=== PATIENT | female | born 1995 | race Caucasian/White ===

== ENCOUNTER 2017-05-24 05:52 | Emergency (ER) | payer BC, OTHER ==
[~2017-05-24] VITALS: Ht 157.5 cm; Wt 43.1 kg
[~2017-05-24 05:52] MED LIST: ACEASPCAF PO; ACEBUTCAFT PO; ACET325 PO; ACET325UDC; ACET500; ALBU4 PO; ALBU90I INH; ALBU90OI INH; ALBU90OI6 INH; ALBU90OI61 INH; AMOCLA400S PO; AMOCLA875 PO; AMOX250 PO; AMOX500 PO; AMOX50SU PO; AZIT200SU PO; AZIT250 PO; Ativan1 MG SL; BIRTH CONTROL; BIRTH CONTROL PILLS PO; Bactrim Ds Tab1 EACH PO; CEPH250A PO; CEPH500 PO; CODACE30 PO; CODACEE120 PO; CODGUAEL PO; CYCL10; CYCL10 PO; Colace100 MG PO; Cyclobenzaprine5 MG PO; DEXGUASY PO; ERYT.5TO OS; Esgic Tablet1 EACH PO; Flagyl250 MG PO; HYDACE5 PO; HYDGUAL120 PO; IBUP100S; IBUP200; IBUP200 PO; IBUP600 PO; KETO10 PO; LIDO5TP; LOPE2C PO; MOTRIN; Motrin600 MG PO; NAPR375 PO; Norco 5-325 Ta1 EACH PO; ONDA4 PO; ONDA4ODT MM; ONDA8ODT MM; OTC COLD MEDS; OXYACE5T PO; PENVK250 PO; PRED20 PO; PRENATAL VITAM1 EAC1 PO; PROM12.5S RC; PROM25 PO; Percocet 5-3251 EACH PO; Pyridium100 MG; RXALBOI INH; RXAMOX500 PO; RXCODACESY PO; RXCODACET PO; RXHYDACE PO; RXHYDGUAS PO; RXONDA4ODT MM; RXOXYACE PO; RXPENVK250 PO; RXPROCODSY PO; Roxicodone5 MG PO; TRAM50 PO; TRIAMINIC; TYLENOL AND MOTRIN; TYLENOL COLD; TYLENOL/MOTRIN PRN; Ultram50 MG PO; Vibramycin100 MG PO; YAZ; ZINC15G; Zofran Odt4 MG SL; [UNRECOGNIZED DRUG - OTHER]; [UNRECOGNIZED DRUG - REMARK]
[2017-05-24] MEDS ORDERED: Ultram50 MG PO (06:36)
[2017-05-24] MEDS ORDERED: IBUP800 PO (06:36)
[2017-05-24] MEDS ORDERED: Veetids 500500 MG PO (06:36)
[2017-09-28] MEDS ORDERED: Cleocin HCl300 MG PO (18:30)
[2017-09-30] MEDS ORDERED: Bactrim Ds Tab1 EACH PO (16:32)
[2017-09-30] MEDS ORDERED: Keflex500 MG PO (16:32)
== END 2017-05-24 06:47 | disposition home or self-care (01) ==
LOC: ER 05:52
DX: K08.89 Other specified disorders of teeth and supporting structures (principal); J45.909 Unspecified asthma, uncomplicated; F17.200 Nicotine dependence, unspecified, uncomplicated; Z88.5 Allergy status to narcotic agent; Z88.8 Allergy status to other drugs, medicaments and biological substances
CPT/HCPCS: 99283

== ENCOUNTER 2017-06-30 13:59 | Emergency (ER) | payer BC, OTHER ==
[~2017-06-30] VITALS: Ht 157.5 cm; Wt 45.4 kg
[~2017-06-30 13:59] MED LIST changes: +IBUP800 PO; +Veetids 500500 MG PO
[2017-06-30] MEDS ORDERED: IBUP800 PO (14:28)
[2017-06-30] MEDS ORDERED: Amoxicillin500 MG PO (14:34)
== END 2017-06-30 14:46 | disposition home or self-care (01) ==
LOC: ER 13:59
DX: K02.9 Dental caries, unspecified (principal); Z88.5 Allergy status to narcotic agent; Z88.8 Allergy status to other drugs, medicaments and biological substances; Z79.899 Other long term (current) drug therapy; Z79.2 Long term (current) use of antibiotics; J45.909 Unspecified asthma, uncomplicated; G43.909 Migraine, unspecified, not intractable, without status migrainosus; F17.210 Nicotine dependence, cigarettes, uncomplicated
CPT/HCPCS: 64400; 99283

== ENCOUNTER 2017-07-07 19:55 | Emergency (ER) | payer BC, OTHER ==
[~2017-07-07] VITALS: Ht 157.5 cm; Wt 45.4 kg
[~2017-07-07 19:55] MED LIST changes: +Amoxicillin500 MG PO
[2017-07-07 20:47] LABS: BASOPHILS ABSOLUTE AUTO 0.05 K/mm3 (0.00-0.23); BASOPHILS PERCENT AUTO 1 % (0-2); EOSINOPHILS ABSOLUTE AUTO 0.06 K/mm3 (0.00-0.68); EOSINOPHILS PERCENT AUTO 1 % (0-6); Hematocrit 40.4 % (33.0-51.0); Hemoglobin 13.6 g/dL (11.5-16.0); IMMATURE GRAN ABSOLUTE AUTO 0.03 K/mm3 (0.00-0.10); IMMATURE GRAN PERCENT AUTO 0 % (0-1); LYMPHOCYTES ABSOLUTE AUTO 2.58 K/mm3 (0.84-5.20); LYMPHOCYTES PERCENT AUTO 25 % (21-46); MONOCYTES ABSOLUTE AUTO 0.55 K/mm3 (0.16-1.47); MONOCYTES PERCENT AUTO 5 % (4-13); Mean Corpuscular HGB 30.2 pg (26.0-34.0); Mean Corpuscular HGB Conc 33.7 g/dL (31.5-36.5); Mean Corpuscular Volume 90 fL (80-100); Mean Platelet Volume 9.3 fL (9.1-12.4); NEUTROPHILS ABSOLUTE AUTO 6.98 K/mm3 (1.96-9.15); NEUTROPHILS PERCENT AUTO 68 % (41-73); Platelet Count 347 K/mm3 (150-400); RDW Coefficient Variation 11.9 % (11.7-14.2); RDW Standard Deviation 39.4 fL (35.1-46.3); White Blood Cell Count 10.25 K/mm3 (4.00-11.30)
[2017-07-07 21:04] LABS: Alanine Aminotransfer (ALT/SGP 17 U/L (12-78); Albumin, Blood 3.9 g/dL (3.4-5.0); Alk Phos 88 U/L (50-136); Anion Gap 6 mmol/L (6-16); Aspartate Aminotrans (AST/SGOT 14 U/L (12-37); Bilirubin, Total 0.3 mg/dL (0.1-1.0); Blood Urea Nitrogen 15 mg/dL (8-24); Bun/Creatinine Ratio 15.7 (12.0-20.0); CO2, Blood 29 mmol/L (21-32); Calcium, Blood 8.9 mg/dL (8.5-10.1); Chloride, Blood 105 mmol/L (98-108); Creatinine, Blood 0.96 mg/dL (0.40-1.00); Globulin, Blood 3.9 g/dL (2.2-4.0); Glomerular Filtration Rate >60 (60-); Glucose, Blood 84 mg/dL (70-99); Potassium, Blood 3.4 mmol/L (3.5-5.5); Sodium, Blood 140 mmol/L (136-145); Total Protein, Blood 7.8 g/dL (6.4-8.2)
[2017-07-08] MEDS ORDERED: CYCL10 PO (01:43)
== END 2017-07-08 02:52 | disposition home or self-care (01) ==
LOC: ER 19:55
PROVIDERS: Emergency Medicine
DX: M54.2 Cervicalgia (principal); Z88.5 Allergy status to narcotic agent; Z88.8 Allergy status to other drugs, medicaments and biological substances; Z79.899 Other long term (current) drug therapy; Z79.2 Long term (current) use of antibiotics; J45.909 Unspecified asthma, uncomplicated; F17.210 Nicotine dependence, cigarettes, uncomplicated
CPT/HCPCS: 36415; 70450; 70496; 70498; 80053; 84703; 85025; 96361; 96374; 96375; 99284; J1100; J1200; J1885; J2765; J3010; J7030; Q9967

== ENCOUNTER 2017-11-27 11:28 | Observation (INO) | payer OTHER ==
[~2017-11-27] VITALS: Ht 157.5 cm; Wt 45.4 kg
[~2017-11-27 11:28] MED LIST changes: +Cleocin HCl300 MG PO; +Keflex500 MG PO
[2017-11-27 12:26] LABS: BASOPHILS ABSOLUTE AUTO 0.06 K/mm3 (0.00-0.23); BASOPHILS PERCENT AUTO 0 % (0-2); EOSINOPHILS ABSOLUTE AUTO 0.16 K/mm3 (0.00-0.68); EOSINOPHILS PERCENT AUTO 1 % (0-6); Hematocrit 45.2 % (33.0-51.0); Hemoglobin 14.6 g/dL (11.5-16.0); IMMATURE GRAN ABSOLUTE AUTO 0.04 K/mm3 (0.00-0.10); IMMATURE GRAN PERCENT AUTO 0 % (0-1); LYMPHOCYTES ABSOLUTE AUTO 1.72 K/mm3 (0.84-5.20); LYMPHOCYTES PERCENT AUTO 12 % (21-46); MONOCYTES ABSOLUTE AUTO 0.61 K/mm3 (0.16-1.47); MONOCYTES PERCENT AUTO 4 % (4-13); Mean Corpuscular HGB 29.5 pg (26.0-34.0); Mean Corpuscular HGB Conc 32.3 g/dL (31.5-36.5); Mean Corpuscular Volume 91 fL (80-100); Mean Platelet Volume 9.3 fL (9.1-12.4); NEUTROPHILS ABSOLUTE AUTO 11.88 K/mm3 (1.96-9.15); NEUTROPHILS PERCENT AUTO 82 % (41-73); Platelet Count 281 K/mm3 (150-400); RDW Coefficient Variation 12.7 % (11.7-14.2); RDW Standard Deviation 42.9 fL (35.1-46.3); Red Blood Cell Count 4.95 M/mm3 (3.80-5.20); White Blood Cell Count 14.47 K/mm3 (4.00-11.30)
[2017-11-27 12:41] LABS: Alanine Aminotransfer (ALT/SGP 22 U/L (12-78); Albumin, Blood 3.6 g/dL (3.4-5.0); Alk Phos 100 U/L (50-136); Anion Gap 5 mmol/L (6-16); Aspartate Aminotrans (AST/SGOT 13 U/L (12-37); Bilirubin, Total 0.3 mg/dL (0.1-1.0); Blood Urea Nitrogen 8 mg/dL (8-24); Bun/Creatinine Ratio 10.6 (12.0-20.0); CO2, Blood 32 mmol/L (21-32); Calcium, Blood 9.1 mg/dL (8.5-10.1); Chloride, Blood 102 mmol/L (98-108); Creatinine, Blood 0.76 mg/dL (0.40-1.00); Globulin, Blood 3.6 g/dL (2.2-4.0); Glomerular Filtration Rate >60 (60-); Glucose, Blood 90 mg/dL (70-99); Potassium, Blood 4.1 mmol/L (3.5-5.5); Sodium, Blood 139 mmol/L (136-145); Total Protein, Blood 7.2 g/dL (6.4-8.2)
[2017-11-27 13:51] LABS: Source, Urine Clean Catch
[2017-11-27 13:55] LABS: Bilirubin, Urine Neg (Neg); Blood, Urine Neg (Neg); Glucose Qualitative, Urine Neg (Neg); Ketones, Urine Neg (Neg); Leukocyte Esterase, Urine 2+ (Neg); Nitrite, Urine Neg (Neg); Protein, Urine Neg (Neg); Urobilinogen, Urine NORM (Normal)
[2017-11-27 14:18] LABS: Appearance, Urine Clear (Clear); Bacteria Rare /hpf; Color, Urine Yellow (P-Yellow); Red Blood Cells, Urine Not Seen /hpf (0-2); Squamous Epithelial Cells Few /hpf (Few); White Blood Cells, Urine 0-2 /hpf (0-5)
[2017-11-27 17:36] LABS: Candida species (DNA Probe) Negative (NEGATIVE); G. vaginalis (DNA Probe) Positive (NEGATIVE); T. vaginalis (DNA Probe) Negative (NEGATIVE)
[2017-11-28 04:36] LABS: BASOPHILS ABSOLUTE AUTO 0.04 K/mm3 (0.00-0.23); BASOPHILS PERCENT AUTO 0 % (0-2); EOSINOPHILS PERCENT AUTO 1 % (0-6); Hematocrit 41.7 % (33.0-51.0); Hemoglobin 13.7 g/dL (11.5-16.0); IMMATURE GRAN ABSOLUTE AUTO 0.03 K/mm3 (0.00-0.10); IMMATURE GRAN PERCENT AUTO 0 % (0-1); LYMPHOCYTES ABSOLUTE AUTO 1.45 K/mm3 (0.84-5.20); LYMPHOCYTES PERCENT AUTO 12 % (21-46); MONOCYTES ABSOLUTE AUTO 0.68 K/mm3 (0.16-1.47); MONOCYTES PERCENT AUTO 6 % (4-13); Mean Corpuscular HGB 29.8 pg (26.0-34.0); Mean Corpuscular HGB Conc 32.9 g/dL (31.5-36.5); Mean Corpuscular Volume 91 fL (80-100); Mean Platelet Volume 9.3 fL (9.1-12.4); NEUTROPHILS ABSOLUTE AUTO 10.15 K/mm3 (1.96-9.15); NEUTROPHILS PERCENT AUTO 82 % (41-73); Platelet Count 233 K/mm3 (150-400); RDW Coefficient Variation 12.8 % (11.7-14.2); RDW Standard Deviation 42.2 fL (35.1-46.3); Red Blood Cell Count 4.59 M/mm3 (3.80-5.20); White Blood Cell Count 12.45 K/mm3 (4.00-11.30)
[2017-11-28] MEDS ORDERED: DOCU100 PO (10:14)
[2017-11-28] MEDS ORDERED: DOXY100 PO (10:14)
[2017-11-28] MEDS ORDERED: HYDR1TAB94 PO (10:20)
[2017-11-30 04:13] LABS: CHLAMYDIA TRACHOMATIS, NAA Positive (Negative); NEISSERIA GONORRHOEAE, NAA Positive (Negative)
== END 2017-11-28 12:54 | disposition home or self-care (01) ==
LOC: ER 11:28 → SURS 11:29 → EDBEDREQTM 18:03 → EDBEDREQSVC 18:03 → EDBEDREQ 18:03 → SURS 19:37
PROVIDERS: Emergency Medicine; Obstetrics & Gynecology
DX: N73.0 Acute parametritis and pelvic cellulitis (principal); R00.0 Tachycardia, unspecified; D72.829 Elevated white blood cell count, unspecified; J45.909 Unspecified asthma, uncomplicated; G43.909 Migraine, unspecified, not intractable, without status migrainosus; F17.210 Nicotine dependence, cigarettes, uncomplicated; Z88.8 Allergy status to other drugs, medicaments and biological substances
CPT/HCPCS: 36415; 76856; 80053; 81001; 81025; 83605; 83690; 85025; 87086; 87480; 87491; 87510; 87591; 87660; 96361; 96365; 96375; 96376; 99285-25; J0694; J0697; J1885; J2405; J3010; J3480; J7030

== ENCOUNTER 2018-03-19 03:09 | Emergency (ER) | payer BC, OTHER ==
[~2018-03-19] VITALS: Ht 157.5 cm; Wt 45.4 kg
[~2018-03-19 03:09] MED LIST changes: +DOCU100 PO; +DOXY100 PO; +HYDR1TAB94 PO
[2018-03-19] MEDS ORDERED: BUPRENORPHINE HC2 MG SL (03:52)
[2018-03-19] MEDS ORDERED: IBUP600 PO (06:39)
[2018-03-19] MEDS ORDERED: Amoxicillin500 MG PO (06:39)
== END 2018-03-19 06:50 | disposition home or self-care (01) ==
LOC: ER 03:09
DX: K08.89 Other specified disorders of teeth and supporting structures (principal); R51 Headache; Z88.8 Allergy status to other drugs, medicaments and biological substances; Z79.899 Other long term (current) drug therapy; J45.909 Unspecified asthma, uncomplicated; G43.909 Migraine, unspecified, not intractable, without status migrainosus; F17.210 Nicotine dependence, cigarettes, uncomplicated
CPT/HCPCS: 99283

== ENCOUNTER 2018-09-18 23:19 | Emergency (ER) | payer BC, OTHER ==
[~2018-09-18] VITALS: Ht 157.5 cm; Wt 45.4 kg
[~2018-09-18 23:19] MED LIST changes: +BUPRENORPHINE HC2 MG SL
[2018-09-19] MEDS ORDERED: Bactrim Ds Tab1 EACH PO (01:01)
== END 2018-09-19 01:07 | disposition home or self-care (01) ==
LOC: ER 23:19
DX: L02.212 Cutaneous abscess of back [any part, except buttock and flank] (principal); Z88.8 Allergy status to other drugs, medicaments and biological substances; F17.210 Nicotine dependence, cigarettes, uncomplicated
CPT/HCPCS: 10060; 90471; 90714; 99282-25

== ENCOUNTER 2018-09-29 10:01 | Emergency (ER) | payer BC, OTHER ==
[~2018-09-29] VITALS: Ht 157.5 cm; Wt 45.4 kg
[2018-09-29] MEDS ORDERED: Mupirocin22 GM TOP (10:21)
[2018-09-29] MEDS ORDERED: MONDOXYNE NL100 MG PO (10:21)
[2018-09-29] MEDS ORDERED: CEPH500 PO (10:21)
== END 2018-09-29 10:30 | disposition home or self-care (01) ==
LOC: ER 10:01
DX: L02.212 Cutaneous abscess of back [any part, except buttock and flank] (principal); J45.909 Unspecified asthma, uncomplicated; G43.909 Migraine, unspecified, not intractable, without status migrainosus; F17.210 Nicotine dependence, cigarettes, uncomplicated
CPT/HCPCS: 99282

== ENCOUNTER 2018-11-14 09:51 | Emergency (ER) | payer BC, OTHER ==
[~2018-11-14] VITALS: Ht 157.5 cm; Wt 45.4 kg
[~2018-11-14 09:51] MED LIST changes: +MONDOXYNE NL100 MG PO; +Mupirocin22 GM TOP
[2018-11-14 12:55] LABS: BASOPHILS ABSOLUTE AUTO 0.04 K/mm3 (0.00-0.23); BASOPHILS PERCENT AUTO 1 % (0-2); EOSINOPHILS ABSOLUTE AUTO 0.11 K/mm3 (0.00-0.68); EOSINOPHILS PERCENT AUTO 1 % (0-6); Hemoglobin 14.8 g/dL (11.5-16.0); IMMATURE GRAN ABSOLUTE AUTO 0.03 K/mm3 (0.00-0.10); IMMATURE GRAN PERCENT AUTO 0 % (0-1); LYMPHOCYTES ABSOLUTE AUTO 1.89 K/mm3 (0.84-5.20); LYMPHOCYTES PERCENT AUTO 22 % (21-46); MONOCYTES ABSOLUTE AUTO 0.61 K/mm3 (0.16-1.47); MONOCYTES PERCENT AUTO 7 % (4-13); Mean Corpuscular HGB 30.6 pg (26.0-34.0); Mean Corpuscular HGB Conc 32.9 g/dL (31.5-36.5); Mean Corpuscular Volume 93 fL (80-100); Mean Platelet Volume 9.5 fL (9.1-12.4); NEUTROPHILS ABSOLUTE AUTO 5.82 K/mm3 (1.96-9.15); NEUTROPHILS PERCENT AUTO 68 % (41-73); Platelet Count 262 K/mm3 (150-400); RDW Coefficient Variation 12.4 % (11.7-14.2); RDW Standard Deviation 42.5 fL (35.1-46.3); Red Blood Cell Count 4.83 M/mm3 (3.80-5.20)
[2018-11-14 13:18] LABS: Alanine Aminotransfer (ALT/SGP 22 U/L (12-78); Albumin, Blood 3.8 g/dL (3.4-5.0); Albumin/Globulin Ratio 1.1 (0.8-1.8); Alk Phos 95 U/L (50-136); Anion Gap 5 mmol/L (6-16); Aspartate Aminotrans (AST/SGOT 13 U/L (12-37); Bilirubin, Total 0.3 mg/dL (0.1-1.0); Blood Urea Nitrogen 8 mg/dL (8-24); Bun/Creatinine Ratio 11.6 (12.0-20.0); CO2, Blood 30 mmol/L (21-32); Calcium, Blood 9.1 mg/dL (8.5-10.1); Chloride, Blood 105 mmol/L (98-108); Creatinine, Blood 0.69 mg/dL (0.40-1.00); Globulin, Blood 3.5 g/dL (2.2-4.0); Glomerular Filtration Rate >60 (60-); Glucose, Blood 86 mg/dL (70-99); Potassium, Blood 4.4 mmol/L (3.5-5.5); Sodium, Blood 140 mmol/L (136-145); Total Protein, Blood 7.3 g/dL (6.4-8.2)
== END 2018-11-14 13:52 | disposition left against medical advice (07) ==
LOC: ER 09:51
PROVIDERS: Internal Medicine
DX: L03.213 Periorbital cellulitis (principal); L02.01 Cutaneous abscess of face; Z88.8 Allergy status to other drugs, medicaments and biological substances; F17.200 Nicotine dependence, unspecified, uncomplicated
CPT/HCPCS: 36415; 70487; 80053; 85025; 99284-25; Q9967

== ENCOUNTER 2018-11-14 16:20 | Inpatient (IN) | payer BC, OTHER ==
[~2018-11-14] VITALS: Ht 157.5 cm; Wt 44.3 kg
--- NOTE | 2018-11-14 20:54 | NUR ---
RECIEVED REPORT FROM ED MARLON AARON, AWAITING FOR RM [id number] TO BE CLEANED.
--- NOTE | 2018-11-14 21:05 | NUR ---
PT ARRIVED TO UNIT VIA STRETCHER, AMBULATED INDEPENDENTLY TO BED. PT IMMEDIATELY WENT IN SHOWER AFTER ARRIVAL. RETURNED TO BED AFTERWARDS, ORIENTED TO CALL LT AND UNIT. S/O AT BEDSIDE. ASSUMING CARE OF PT.
--- NOTE | 2018-11-15 05:41 | NUR ---
SHIFT SUMMARY PT IS A&OX4, INDEPENDENT IN . R EYE SWELLING AND REDNESS, ADMITTED FOR R EYE CELLULITIS. DENIES ANY VISION CHANGES. NO DISCHARGE FROM EYE NOTED. PT SHOWERED UPON ARRIVAL TO FLOOR. S/O AT BEDSIDE THROUGH THE NIGHT. IV ABX ADMINISTERED PER ORDERS. VSS. WILL CONT TO MONITOR AND PROVIDE CARE UNTIL PRESUMED BY ONCOMING RN.
--- NOTE | 2018-11-15 18:00 | NUR ---
SHIFT SUMMARY: NO ACUTE CHANGES TO REPORT THIS SHIFT. PT A&O; FLAT AFFECT; CALM AND COOPERATIVE WITH CARE. R EYE CELLULITIS; NO C/O PAIN THIS SHIFT. PT OUTSIDE TO SMOKE SEVERAL TIMES THIS SHIFT. S/O IN ROOM WITH PATIENT T/O SHIFT. IV ABX CONTINUING. WCTM.
--- NOTE | 2018-11-16 06:41 | NUR ---
SHIFT SUMMARY PT IS A&OX4, INDEPENDENT IN RM. SWELLING AND REDNESS TO R EYE HAS IMPROVED. SLIGHT BRUISING ALONG BROW BONE NOTED. PT HAS VISITORS IN RM ALL TONIGHT, OUTSIDE TO SMOKE FREQUENTLY. IV ABX ADMINISTERED PER ORDERS. GIVEN TYLENOL ONE TIME FOR PAIN TO R EYE. WILL CONT TO MONITOR AND PROVIDE CARE UNTIL PRESUMED BY ONCOMING RN.
[2018-11-16] MEDS ORDERED: Vsl#3 Capsule1 EACH PO (11:08)
[2018-11-16] MEDS ORDERED: AMOCLA875 PO (11:08)
--- NOTE | 2018-11-16 12:15 | NUR ---
DISCHARGE NOTE PT DISCHARGED AMBULATORY POV WITH MOTHER AND S.O.; IV DISCONTINUED INTACT. PT VERBALIZED UNDERSTANDING OF DISCHARGE INSTRUCTIONS AND IMPORTANCE OF TAKING COMPLETE COURSE OF ANTIBIOTICS. GIVEN PCP APPT AT [facility]. ALL BELONGINGS RETURNED TO PATIENT PRIOR TO DISCHARGE.
== END 2018-11-16 12:29 | disposition home or self-care (01) | DRG 872 ==
LOC: ER 16:20 → MEDS 20:00 → ENPENDDIS 11-16 11:00 → MEDS 11-16 12:29
PROVIDERS: ADMIT Hospitalist
DX: A41.9 Sepsis, unspecified organism (principal); L03.213 Periorbital cellulitis; J45.909 Unspecified asthma, uncomplicated; F17.210 Nicotine dependence, cigarettes, uncomplicated; Z59.0 Homelessness
CPT/HCPCS: 36415; 83605; 87040; 96361; 96365; 96367; 99284-25; A9270; J0696; J2543; J2930; J7030; J7050

== ENCOUNTER 2019-02-21 09:41 | Emergency (ER) | payer BC, OTHER ==
[~2019-02-21] VITALS: Ht 157.5 cm; Wt 45.4 kg
[~2019-02-21 09:41] MED LIST changes: +Vsl#3 Capsule1 EACH PO
[2019-02-21 10:30] LABS: Source, Urine Clean Catch
[2019-02-21 10:37] LABS: Bilirubin, Urine Neg (Neg); Blood, Urine Neg (Neg); Glucose Qualitative, Urine Neg (Neg); Ketones, Urine Neg (Neg); Leukocyte Esterase, Urine 1+ (Neg); Nitrite, Urine Neg (Neg); Protein, Urine Neg (Neg); Specific Gravity, Urine 1.025 (1.003-1.022); Urobilinogen, Urine NORM (Normal)
[2019-02-21 10:57] LABS: Appearance, Urine Clear (Clear); Bacteria Rare /hpf; Color, Urine Yellow (P-Yellow); Red Blood Cells, Urine Not Seen /hpf (0-2); Squamous Epithelial Cells Few /hpf (Few); White Blood Cells, Urine 0-2 /hpf (0-5)
[2019-02-21 10:58] LABS: Calcium Oxalate Crystals Rare /hpf
[2019-02-21 11:37] LABS: BASOPHILS ABSOLUTE AUTO 0.04 K/mm3 (0.00-0.23); BASOPHILS PERCENT AUTO 1 % (0-2); EOSINOPHILS ABSOLUTE AUTO 0.12 K/mm3 (0.00-0.68); EOSINOPHILS PERCENT AUTO 2 % (0-6); Hemoglobin 14.3 g/dL (11.5-16.0); IMMATURE GRAN ABSOLUTE AUTO 0.03 K/mm3 (0.00-0.10); IMMATURE GRAN PERCENT AUTO 0 % (0-1); LYMPHOCYTES ABSOLUTE AUTO 2.76 K/mm3 (0.84-5.20); LYMPHOCYTES PERCENT AUTO 34 % (21-46); MONOCYTES ABSOLUTE AUTO 0.57 K/mm3 (0.16-1.47); MONOCYTES PERCENT AUTO 7 % (4-13); Mean Corpuscular HGB 30.2 pg (26.0-34.0); Mean Corpuscular HGB Conc 33.3 g/dL (31.5-36.5); Mean Corpuscular Volume 91 fL (80-100); Mean Platelet Volume 9.4 fL (9.1-12.4); NEUTROPHILS ABSOLUTE AUTO 4.61 K/mm3 (1.96-9.15); NEUTROPHILS PERCENT AUTO 57 % (41-73); Platelet Count 246 K/mm3 (150-400); RDW Coefficient Variation 11.9 % (11.7-14.2); RDW Standard Deviation 39.7 fL (35.1-46.3); Red Blood Cell Count 4.74 M/mm3 (3.80-5.20); White Blood Cell Count 8.13 K/mm3 (4.00-11.30)
[2019-02-21 12:05] LABS: Alanine Aminotransfer (ALT/SGP 18 U/L (12-78); Albumin, Blood 3.6 g/dL (3.4-5.0); Alk Phos 90 U/L (50-136); Anion Gap 6 mmol/L (6-16); Aspartate Aminotrans (AST/SGOT 14 U/L (12-37); Bilirubin, Total 0.2 mg/dL (0.1-1.0); Blood Urea Nitrogen 11 mg/dL (8-24); CO2, Blood 28 mmol/L (21-32); Chloride, Blood 106 mmol/L (98-108); Creatinine, Blood 0.65 mg/dL (0.40-1.00); Globulin, Blood 3.6 g/dL (2.2-4.0); Glomerular Filtration Rate >60 (60-); Glucose, Blood 79 mg/dL (70-99); Potassium, Blood 3.9 mmol/L (3.5-5.5); Sodium, Blood 140 mmol/L (136-145); Total Protein, Blood 7.2 g/dL (6.4-8.2)
[2019-02-21] MEDS ORDERED: Flagyl250 MG PO (13:21)
[2019-02-24 12:06] LABS: CHLAMYDIA BY NAA Negative (Negative); GONOCOCCUS BY NAA Negative (Negative); TRICH VAG BY NAA Positive (Negative)
== END 2019-02-21 13:35 | disposition home or self-care (01) ==
LOC: ER 09:41
PROVIDERS: Emergency Medicine; Physician Assistant
DX: N76.0 Acute vaginitis (principal); N73.9 Female pelvic inflammatory disease, unspecified; A64 Unspecified sexually transmitted disease; F17.200 Nicotine dependence, unspecified, uncomplicated; Z88.8 Allergy status to other drugs, medicaments and biological substances
CPT/HCPCS: 36415; 80053; 81001; 81025; 83690; 85025; 87086; 87491; 87591; 87661; 99284; J0696; J2405

== ENCOUNTER → 2019-02-24 | Outpatient (CLI) | payer BC, OTHER ==
[2019-02-28 07:49] LABS: Candida species (DNA Probe) Negative (NEGATIVE); G. vaginalis (DNA Probe) Negative (NEGATIVE); T. vaginalis (DNA Probe) Negative (NEGATIVE)
[2019-02-28 17:06] LABS: CHLAMYDIA TRACHOMATIS, NAA Negative (Negative); NEISSERIA GONORRHOEAE, NAA Negative (Negative)
== END ==
LOC: LAB 16:30 → LAB SHORT 16:30
PROVIDERS: Nurse Practitioner Family
DX: N89.8 Other specified noninflammatory disorders of vagina (principal); R10.2 Pelvic and perineal pain
CPT/HCPCS: 87480; 87491; 87510; 87591; 87660

== ENCOUNTER → 2019-04-22 | Outpatient (CLI) | payer BC, OTHER | LOC: LAB EV 17:23 → LAB SHORT 17:23 | DX: R10.9 Unspecified abdominal pain (principal) | CPT/HCPCS: 87086 ==

== ENCOUNTER 2020-10-23 08:39 | Emergency (ER) | payer BC, OTHER ==
[~2020-10-23] VITALS: Ht 157.5 cm; Wt 49.9 kg
[2020-10-23] MEDS ORDERED: AMOCLA875 PO (09:15)
[2020-10-23] MEDS ORDERED: IBU800 MG PO (09:15)
== END 2020-10-23 10:02 | disposition home or self-care (01) ==
LOC: ER 08:39
DX: H66.92 Otitis media, unspecified, left ear (principal); J02.9 Acute pharyngitis, unspecified; R59.0 Localized enlarged lymph nodes; F17.200 Nicotine dependence, unspecified, uncomplicated; Z88.8 Allergy status to other drugs, medicaments and biological substances
CPT/HCPCS: 99282; A9270; J1100

== ENCOUNTER 2021-05-07 07:38 | Emergency (ER) | payer OTHER ==
[~2021-05-07] VITALS: Ht 157.5 cm; Wt 45.4 kg
[~2021-05-07 07:38] MED LIST changes: +IBU800 MG PO
[2021-05-07 08:15] LABS: BASOPHILS ABSOLUTE AUTO 0.03 K/mm3 (0.00-0.23); BASOPHILS PERCENT AUTO 0 % (0-2); EOSINOPHILS ABSOLUTE AUTO 0.08 K/mm3 (0.00-0.68); EOSINOPHILS PERCENT AUTO 1 % (0-6); Hematocrit 39.4 % (33.0-51.0); Hemoglobin 13.2 g/dL (11.5-16.0); IMMATURE GRAN ABSOLUTE AUTO 0.02 K/mm3 (0.00-0.10); IMMATURE GRAN PERCENT AUTO 0 % (0-1); LYMPHOCYTES PERCENT AUTO 22 % (21-46); MONOCYTES ABSOLUTE AUTO 0.83 K/mm3 (0.16-1.47); MONOCYTES PERCENT AUTO 9 % (4-13); Mean Corpuscular HGB 29.8 pg (26.0-34.0); Mean Corpuscular HGB Conc 33.5 g/dL (31.5-36.5); Mean Corpuscular Volume 89 fL (80-100); Mean Platelet Volume 9.2 fL (9.1-12.4); NEUTROPHILS ABSOLUTE AUTO 6.55 K/mm3 (1.96-9.15); NEUTROPHILS PERCENT AUTO 68 % (41-73); Platelet Count 270 K/mm3 (150-400); RDW Coefficient Variation 12.4 % (11.7-14.2); RDW Standard Deviation 40.7 fL (35.1-46.3); Red Blood Cell Count 4.43 M/mm3 (3.80-5.20); White Blood Cell Count 9.61 K/mm3 (4.00-11.30)
[2021-05-07 08:30] LABS: Anion Gap 6 mmol/L (6-16); Blood Urea Nitrogen 10 mg/dL (8-24); Bun/Creatinine Ratio 15.8 (12.0-20.0); CO2, Blood 29 mmol/L (21-32); Calcium, Blood 8.9 mg/dL (8.5-10.1); Chloride, Blood 105 mmol/L (98-108); Creatinine, Blood 0.63 mg/dL (0.40-1.00); Glomerular Filtration Rate >60 (60-); Glucose, Blood 106 mg/dL (70-99); Potassium, Blood 3.7 mmol/L (3.5-5.5); Sodium, Blood 140 mmol/L (136-145)
[2021-05-07] MEDS ORDERED: PENVK500 PO (09:22)
[2021-05-07] MEDS ORDERED: IBUP600 PO (09:22)
[2021-05-07] MEDS ORDERED: CODACE30 PO (09:22)
== END 2021-05-07 09:31 | disposition home or self-care (01) ==
LOC: ER 07:38
PROVIDERS: Emergency Medicine
DX: K04.7 Periapical abscess without sinus (principal); L03.211 Cellulitis of face; F17.200 Nicotine dependence, unspecified, uncomplicated; Z88.8 Allergy status to other drugs, medicaments and biological substances
CPT/HCPCS: 36415; 70487; 80048; 81025; 85025; 96365; 96375; 99283-25; J0295; J1100; J2405; J3010; J7050; Q9967

== ENCOUNTER 2022-07-15 13:11 | Emergency (ER) | payer OTHER ==
[~2022-07-15] VITALS: Ht 157.5 cm; Wt 52.2 kg
[~2022-07-15 13:11] MED LIST changes: +PENVK500 PO
[2022-07-15 13:21] VITALS: BP 130/94
[2022-07-15] MEDS ORDERED: METH40 PO (13:23)
[2022-07-15] MEDS ORDERED: Vibramycin100 MG PO (15:28)
[2022-07-15] MEDS ORDERED: HYDR1TAB94 PO (15:29)
== END 2022-07-15 16:07 | disposition home or self-care (01) ==
LOC: ER 13:11
DX: S61.210A Laceration without foreign body of right index finger without damage to nail, initial encounter (principal); S61.212A Laceration without foreign body of right middle finger without damage to nail, initial encounter; F17.200 Nicotine dependence, unspecified, uncomplicated; Z88.6 Allergy status to analgesic agent; W29.3XXA Contact with powered garden and outdoor hand tools and machinery, initial encounter
CPT/HCPCS: 90714; A9270

== ENCOUNTER → 2022-09-09 | Outpatient (CLI) | payer OTHER ==
[~2022-09-09] MED LIST changes: +METH40 PO
[2022-09-15 16:07] LABS: CHLAMYDIA BY NAA Negative (Negative); GONOCOCCUS BY NAA Negative (Negative); HPV 16 Negative (Negative); HPV 18 Negative (Negative); HPV OTHER HR TYPES Negative (Negative); TRICH VAG BY NAA Negative (Negative)
== END ==
LOC: LAB SHORT 11:00 → LAB 11:00
PROVIDERS: Registered Nurse
DX: Z01.419 Encounter for gynecological examination (general) (routine) without abnormal findings (principal)
CPT/HCPCS: 87491; 87591; 87624; 87661; G0145